=== PATIENT | female | born 1980 | race Two or more races ===

== ENCOUNTER 2021-11-03 19:31 | Emergency (ER) | payer BC, OTHER ==
[2021-11-03 20:04] VITALS: BP 134/90; PULSE 86; TEMP 98.7; BMI 34.4
[2021-11-03] MEDS ORDERED: SODIUM CHLORIDE 1,000 ML IV STA (20:41)
[2021-11-03 21:55] LABS: URINE APPEARANCE CLEAR; URINE BILIRUBIN NEGATIVE (NEGATIVE); URINE COLOR YELLOW; URINE GLUCOSE (UA) NEGATIVE (NEGATIVE); URINE KETONE TRACE (NEGATIVE); URINE LEUK ESTERASE NEGATIVE (NEGATIVE); URINE NITRITE NEGATIVE (NEGATIVE); URINE PROTEIN NEGATIVE (NEGATIVE); URINE UROBILINOGEN 0.2 mg/dL (0.2-1.0)
[2021-11-03 21:59] LABS: BASO % 0.8 % (0-2.0); EOS % 1.6 % (0-4.5); HCG,QUALITATIVE URINE Negative; HEMATOCRIT 39.5 % (32.4-45.2); HEMOGLOBIN 13.2 GM/dL (10.7-15.3); MCH 30.2 pg (25.7-33.7); MCHC 33.5 g/dl (32.0-36.0); MEAN PLT VOLUME 10.2 fl (7.5-11.1); MONO % 6.5 % (3.8-10.2); NEUT % 65.1 % (42.8-82.8); PLATELET COUNT 286 10^3/uL (134-434); RBC 4.39 M/mm3 (3.60-5.2); RDW 13.4 % (11.6-15.6); WHITE BLOOD COUNT 13.3 K/mm3 (4.0-10.0)
[2021-11-03 22:30] LABS: CALCIUM 9.6 mg/dL (8.5-10.1)
[2021-11-03] MEDS ORDERED: KETOROLAC TROMETHAMINE 30 MG/1 ML VIAL IM ONE (22:30)
[2021-11-03 22:31] LABS: BLOOD UREA NITROGEN 19.3 mg/dL (7-18)
[2021-11-03 22:34] LABS: CREATININE 0.9 mg/dL (0.55-1.3)
[2021-11-03 22:35] LABS: BILIRUBIN,TOTAL 0.4 mg/dL (0.2-1)
[2021-11-03] MEDS ORDERED: KETOROLAC TROMETHAMINE 30 MG/1 ML VIAL ONE (23:09)
== END 2021-11-04 03:26 | disposition home or self-care (01) ==
LOC: JER 19:31
PROC: 3E0233Z Introduction of Anti-inflammatory into Muscle, Percutaneous Approach (ICD-10-PCS; principal; 2021-11-03)
PROC: 3E0337Z Introduction of Electrolytic and Water Balance Substance into Peripheral Vein, Percutaneous Approach (ICD-10-PCS; 2021-11-03)
DX: R10.32 Left lower quadrant pain (principal)
CPT/HCPCS: 36415; 74177-TC; 80053; 81003; 84703; 85025; 87086; 99285-25

== ENCOUNTER 2023-09-27 10:38 | Emergency (ER) | payer OTHER ==
[2023-09-27 10:48] VITALS: BP 141/106; PULSE 75; RESP 18; TEMP 98; BMI 41.3
[2023-09-27 12:06] LABS: BASO % 0.6 % (0-2.0); EOS % 0.1 % (0-4.5); HEMATOCRIT 43.4 % (32.4-45.2); HEMOGLOBIN 14.7 GM/dL (10.7-15.3); LYMPH % 12.5 % (8-40); MCH 30.3 pg (25.7-33.7); MCHC 33.9 g/dl (32.0-36.0); MEAN CELL VOLUME 89.4 fl (80-96); MEAN PLT VOLUME 9.6 fl (7.5-11.1); MONO % 3.1 % (3.8-10.2); NEUT % 83.7 % (42.8-82.8); PLATELET COUNT 300 10^3/uL (134-434); RBC 4.85 M/mm3 (3.60-5.2); WHITE BLOOD COUNT 10.7 K/mm3 (4.0-10.0)
[2023-09-27 12:26] LABS: POTASSIUM 4.3 mmol/L (3.5-5.1)
[2023-09-27] MEDS ORDERED: ACETAMINOPHEN 325 MG TABLET (FP) ONE (12:27)
[2023-09-27 12:28] LABS: ALBUMIN 4.2 g/dl (3.4-5.0); CALCIUM 9.8 mg/dL (8.5-10.1)
[2023-09-27 12:29] LABS: BLOOD UREA NITROGEN 15.8 mg/dL (7-18)
[2023-09-27] MEDS: ACETAMINOPHEN 325 MG TABLET (FP) PO ONE (12:29)
[2023-09-27 12:31] LABS: CREATININE 1.1 mg/dL (0.55-1.3)
[2023-09-27 12:33] LABS: BILIRUBIN,TOTAL 0.3 mg/dL (0.2-1); TOT PROT 7.4 g/dl (6.4-8.2)
[2023-09-27 12:50] LABS: EPI CELLS >36 /uL (0-25.1); HYALINE CASTS 3 /uL (0-3.1); URINE APPEARANCE CLOUDY; URINE BACTERIA 22 /uL (0-1359); URINE BILIRUBIN NEGATIVE (NEGATIVE); URINE COLOR YELLOW; URINE GLUCOSE (UA) NEGATIVE (NEGATIVE); URINE KETONE TRACE (NEGATIVE); URINE LEUK ESTERASE TRACE (NEGATIVE); URINE NITRITE NEGATIVE (NEGATIVE); URINE PROTEIN TRACE (NEGATIVE); URINE RBC 409 /uL (0-23.9); URINE UROBILINOGEN 0.2 mg/dL (0.2-1.0); URINE WBC 36 /uL (0-25.8)
[2023-09-27 12:51] LABS: HCG,QUALITATIVE URINE Negative
== END 2023-09-27 16:17 | disposition home or self-care (01) ==
LOC: JER 10:38
DX: R10.32 Left lower quadrant pain (principal); R19.7 Diarrhea, unspecified; R11.2 Nausea with vomiting, unspecified
CPT/HCPCS: 36415; 74177-TC; 80053; 81003; 83690; 84703; 85025; 87086; 99285-25; Q9967

== ENCOUNTER 2024-04-08 06:20 | Emergency (ER) | payer OTHER ==
[2024-04-08 06:32] VITALS: BMI 47.2
[2024-04-08] MEDS ORDERED: KETOROLAC TROMETHAMINE 15 MG/ML VIAL IVPUSH ONE (07:30)
[2024-04-08] MEDS ORDERED: LIDOCAINE 4% PATCH TP ONE (07:41)
[2024-04-08] MEDS ORDERED: KETOROLAC TROMETHAMINE 15 MG/ML VIAL ONE (07:44)
[2024-04-08] MEDS ORDERED: ACETAMINOPHEN 500 MG TABLET (FP) ONE (07:45)
[2024-04-08] MEDS: ACETAMINOPHEN 500 MG TABLET (FP) PO ONE (07:50)
[2024-04-08] MEDS: LIDOCAINE 4% PATCH TP ONE (07:50)
[2024-04-08] MEDS ORDERED: KETOROLAC TROMETHAMINE 30 MG/1 ML VIAL ONE (09:17)
[2024-04-08] MEDS: KETOROLAC TROMETHAMINE 30 MG/1 ML VIAL IM ONE (09:20)
[2024-04-08 09:43] VITALS: BP 114/57; PULSE 69; RESP 20; TEMP 98.3
[2024-04-08] MEDS ORDERED: LIDOCAINE PATCH REMOVAL MC SCH (22:00)
== END 2024-04-08 10:04 | disposition home or self-care (01) ==
LOC: JER 06:20
PROC: 3E0133Z Introduction of Anti-inflammatory into Subcutaneous Tissue, Percutaneous Approach (ICD-10-PCS; principal; 2024-04-08)
DX: M54.50 Low back pain, unspecified (principal); M79.661 Pain in right lower leg
CPT/HCPCS: 71046-TC-FY; 93971-TC; 99284-25

== ENCOUNTER 2024-05-16 04:38 | Day surgery (SDC) | payer OTHER ==
[2024-05-08 11:55] VITALS: BMI 42.5
[2024-05-16] MEDS ORDERED: LIDOCAINE HCL/PF 1% SDV 5ML VIAL ONE (07:47)
[2024-05-16] MEDS ORDERED: BUPIVACAINE HCL/PF 0.75% 10 ML VIAL ONE (07:47)
[2024-05-16] MEDS ORDERED: ACETAMINOPHEN 500 MG TABLET (FP) PO PRN (09:06)
[2024-05-16] MEDS: LIDOCAINE HCL 1% PRESERVATIVE FREE - 30ML VIAL IJ ONE (17:19)
[2024-05-16] MEDS: BUPIVACAINE HCL/PF 0.75% 10 ML VIAL NR ONE ×2 (17:24)
[2024-05-16 17:50] VITALS: RESP 18; TEMP 97.7
[2024-05-16 18:12] VITALS: BP 139/81; PULSE 77
== END 2024-05-16 18:05 | disposition home or self-care (01) ==
LOC: JASU-SURG 04:38
PROVIDERS: ATTEND Pain Medicine Pain Medicine
PROC: 3E0T33Z Introduction of Anti-inflammatory into Peripheral Nerves and Plexi, Percutaneous Approach (ICD-10-PCS; 2024-05-16)
PROC: 3E0T3BZ Introduction of Anesthetic Agent into Peripheral Nerves and Plexi, Percutaneous Approach (ICD-10-PCS; principal; 2024-05-16 16:00)
DX: M47.816 Spondylosis without myelopathy or radiculopathy, lumbar region (principal)
CPT/HCPCS: 76000-TC-FY

== ENCOUNTER 2024-06-20 04:46 | Day surgery (SDC) | payer OTHER ==
[2024-06-19 13:09] VITALS: BMI 45.3
[2024-06-20] MEDS ORDERED: ACETAMINOPHEN 500 MG TABLET (FP) PO PRN (08:48)
[2024-06-20] MEDS: LIDOCAINE HCL 1% PRESERVATIVE FREE - 30ML VIAL IJ ONE (12:57)
[2024-06-20] MEDS: BUPIVACAINE HCL/PF 0.75% 10 ML VIAL NR ONE ×3 (13:01)
[2024-06-20 14:24] VITALS: BP 120/67; PULSE 86; RESP 18; TEMP 97.8
== END 2024-06-20 13:45 | disposition home or self-care (01) ==
LOC: JASU-SURG 04:46
PROVIDERS: ATTEND Pain Medicine Pain Medicine
PROC: 3E0T33Z Introduction of Anti-inflammatory into Peripheral Nerves and Plexi, Percutaneous Approach (ICD-10-PCS; 2024-06-20)
PROC: 3E0T3BZ Introduction of Anesthetic Agent into Peripheral Nerves and Plexi, Percutaneous Approach (ICD-10-PCS; principal; 2024-06-20 13:15)
DX: M47.816 Spondylosis without myelopathy or radiculopathy, lumbar region (principal)
CPT/HCPCS: 76000-TC-FY